=== PATIENT | female | born 1995 | race Caucasian/White ===

== ENCOUNTER 2016-12-04 01:04 | Emergency (ER) | payer OTHER ==
[~2016-12-04] VITALS: Ht 160 cm; Wt 68.0 kg
[2016-12-04 01:06] VITALS: TEMP 36.5; Ht 160 cm; Wt 68.0 kg
[2016-12-04] MEDS ORDERED: EFF/375 PO (05:47)
[2016-12-04] MEDS ORDERED: MULT-506 PO (05:47)
[2016-12-04] MEDS ORDERED: TOPI100T20 PO (05:47)
[2016-12-04] MEDS ORDERED: PHEN37.5 PO (05:52)
[2016-12-04 06:01] VITALS: BP 118/83
[2016-12-04 06:06] VITALS: PULSE 91; O2SAT 100
--- NOTE | 2016-12-04 07:21 | EMERGENCY ROOM VISIT NOTE ---
History Report prepared by Gayle: Ashwini Luna Under the Supervision of: Dr. Carmen Hampton M.D. First contact with patient: 01:16 Chief Complaint: ALCOHOL OVERDOSE Stated Complaint: ETOH Nursing Triage Summary: Pt brought in by friends. Pt was out drinking for her 21 st birthday. Friends found her in the bathroom vomiting. Friends deny any trauma. History of Present Illness The patient is a 21 year old female who presents to the Emergency Room with complaints of an episode of an alcohol overdose occurring this evening. The patient's friends state that it is her 21st birthday and she had too much to drink. They state that she has vomited everything she has taken in and can't keep water down. They report that they were taking turns watching her, but after she wasn't moving off the floor for a while, became concerned. They state that they decided to bring her in to be safe. The friends deny the patient falling and having anything other than alcohol. Source of History: friend Onset: this evening Position: other (global) Quality: other (global) Timing: other (episode) Associated Symptoms: + vomiting Note: The friends deny the patient falling and having anything other than alcohol. Review of Systems See HPI for pertinent positives & negatives. A total of 10 systems reviewed and were otherwise negative. Past Medical & Surgical Medical Problems: (1) No Known Active Medical Problems Family History No pertinent family history Social History Smoking Status: Never Smoker Alcohol Use: occasionally Drug Use: none Marital Status: single Housing Status: lives with roommate Occupation Status: [employer] student Current/Historical Medications Scheduled Multivitamin (Multivitamin), 1 TAB PO DAILY Phentermine Hcl (Phentermine Hcl), 37.5 MG PO DIRECTED Topiramate (Topamax), Unknown Dose PO DAILY Allergies Coded Allergies: Sulfa Antibiotics (Verified Allergy, Severe, HIVES-ITCHY, 12/04/16) POLLEN (Verified Allergy, Intermediate, CONGESTION, 12/04/16) Physical Exam Vital Signs Date Time Temp Pulse Resp B/P (MAP) Pulse Ox O2 Delivery O2 Flow Rate FiO2 12/04/16 06:06 91 100 12/04/16 06:01 118/83 12/04/16 05:36 98 100 12/04/16 05:31 100/69 12/04/16 05:30 105 100 12/04/16 05:15 79 12/04/16 05:01 119/69 12/04/16 05:00 78 14 99 12/04/16 04:31 110/64 12/04/16 04:29 80 17 100/53 99 Room Air 12/04/16 03:30 80 17 98/56 99 Room Air 12/04/16 02:04 79 17 96 12/04/16 02:01 104/62 12/04/16 01:34 80 18 95 12/04/16 01:31 104/65 12/04/16 01:20 76 12/04/16 01:17 100/63 12/04/16 01:06 36.5 97 20 107/72 99 Room Air Physical Exam Vital signs reviewed. General: Odor of EtOH in the breath, disheveled 21-year-old female. No signs of trauma. HEENT: Mild scleral injection bilaterally, PERRLA, neck supple, dry mucous membranes. Cardiovascular: Regular rate and rhythm, no extra sounds. Pulmonary: Clear to auscultation bilaterally, normal work of breathing. Abdomen: Soft, nontender, nondistended, positive bowel sounds. Musculoskeletal: Upper and lower extremities atraumatic, no peripheral edema Skin: Warm, dry, no rash. Atraumatic. Neurologic: Patient is currently nonverbal. Medical Decision & Procedures Laboratory Results Test 12/04/16 01:44 Ethyl Alcohol mg/dL 211.0 mg/dl (0-3) Laboratory results per my review. ED Course 0122: Past medical records reviewed. The patient was evaluated in room A3. A complete history and physical examination was performed. 0553: Upon reevaluation, the patient appeared to have improvement of her symptoms. I discussed findings with the patient. She verbalized agreement of the treatment plan. The patient was discharged home. Medical Decision The differential diagnosis of the patient's presentation includes alcohol ingestion, illicit drug use, trauma, and dehydration. This pt was evaluated and appeared to to be in no distress. Aspiration precautions were maintained. JENNIE was 211. Pt was observed until she reached a more sober state. She was d/c to the care of friends. She will f/u with [facility] as directed. She will return to the ED for worsening of symptoms or any medical concerns. Impression Primary Impression: Alcoholic intoxication Scribe Attestation The scribe's documentation has been prepared under my direction and personally reviewed by me in its entirety. I confirm that the note above accurately reflects all work, treatment, procedures, and medical decision making performed by me. Departure Information Dispostion Home / Self-Care Referrals No Doctor, Assigned (PCP) Forms HOME CARE DOCUMENTATION FORM, IMPORTANT VISIT INFORMATION Patient Instructions My [facility] Additional Instructions Diagnosis: Alcohol intoxication Drink plenty of clear liquids, such as water or Gatorade. Tylenol 650 mg every 6 hours as needed for pain. Avoid excessive alcohol consumption. Follow-up with [facility] services as directed. Return to emergency for worsening of symptoms or medical concerns.
== END 2016-12-04 06:15 | disposition home or self-care (01) ==
LOC: C.EDB 01:06 → C.EDA 06:15
DX: F10.129 Alcohol abuse with intoxication, unspecified (principal); Y90.7 Blood alcohol level of 200-239 mg/100 ml; Z88.2 Allergy status to sulfonamides; Z91.09 Other allergy status, other than to drugs and biological substances